=== PATIENT | male | born 1985 | race Caucasian/White ===

== ENCOUNTER 2017-03-10 01:36 | Emergency (ER) | payer SELFPAY ==
[2017-03-10] MEDS ORDERED: Sodium Chloride 0.9% 1,000 ML IV ONE (03:06)
[2017-03-10] MEDS ORDERED: Sodium Chloride 0.9% 1,000 ML ONE (03:12)
[2017-03-10 03:19] LABS: BASO % 0.7 % (0.0-2.0); EOS % 1.2 % (0.0-4.0); HEMATOCRIT 43.1 % (35.0-51.0); LYMPH # 0.8 K/uL (1.0-4.3); LYMPH % 20.7 % (20.0-40.0); MEAN CELL VOLUME 85.4 fL (80.0-94.0); MEAN CORPUSCULAR HEMOGLOBIN 28.9 pg (27.0-31.0); MEAN CORPUSCULAR HGB CONC 33.9 g/dL (33.0-37.0); MEAN PLATELET VOLUME 9.7 fL (7.2-11.7); MONO # 0.9 K/uL (0.0-0.8); MONO % 23.4 % (0.0-10.0); NRBC % 0.3 % (0.0-2.0); PLATELET COUNT 119 K/uL (130-400); RED CELL DISTRIBUTION WIDTH 13.5 % (11.5-14.5); WHITE BLOOD COUNT 3.6 K/uL (4.8-10.8)
[2017-03-10 03:29] LABS: CHLORIDE 101 mmol/L (98-107)
[2017-03-10 03:30] LABS: POTASSIUM 3.6 mmol/L (3.6-5.2); SODIUM 141 mmol/L (132-148)
[2017-03-10 03:32] LABS: ALB/GLOB RATIO 1.4 (1.0-2.1); ALKALINE PHOSPHATASE 101 U/L (38-126); AST/SGOT 81 U/L (17-59); BILIRUBIN,TOTAL 0.7 mg/dL (0.2-1.3); BLOOD UREA NITROGEN 15 mg/dL (9-20); CARBON DIOXIDE 26 mmol/L (22-30); GFR AFRICAN-AMERICAN > 60; TOTAL PROTEIN 7.3 g/dL (6.3-8.3)
[2017-03-10 03:33] LABS: ALT/SGPT 70 U/L (21-72); CALCIUM 8.9 mg/dl (8.6-10.4); GLUCOSE,RANDOM 91 mg/dL (75-110)
--- NOTE | 2017-03-10 04:04 | C.PDOC ---
History Of Present Illness 31 y/o male presents to the ED for evaluation of subjective fever and diffuse, itchy rash which began 1 week ago. Patient also reports epigastric abdominal pain and mild nausea which began earlier today. Patient states his symptoms worsen with deep breathing. He denies cough, throat swelling, vomiting. Time Seen by Provider: 03/10/17 02:50 Chief Complaint (Nursing): Abdominal Pain History Per: Patient History/Exam Limitations: no limitations Onset/Duration Of Symptoms: Days Current Symptoms Are (Timing): Still Present Location Of Pain/Discomfort: Epigastric Radiation Of Pain To:: None Quality Of Discomfort: "Pain" Past Medical History Reviewed: Historical Data, Nursing Documentation, Vital Signs Vital Signs: Last Vital Signs Temp 97.6 F 03/10/17 01:43 Pulse 90 03/10/17 01:43 Resp 20 03/10/17 01:43 BP 137/87 03/10/17 01:43 Pulse Ox 100 03/10/17 05:22 - Medical History PMH: No Chronic Diseases Surgical History: No Surg Hx Family History: States: Unknown Family Hx - Social History Hx Alcohol Use: No Hx Substance Use: No Review Of Systems Except As Marked, All Systems Reviewed And Found Negative. Constitutional: Positive for: Fever ENT: Negative for: Throat Swelling Respiratory: Negative for: Cough Gastrointestinal: Positive for: Nausea (mild), Abdominal Pain (epigastric ). Negative for: Vomiting Skin: Positive for: Rash (itchy) Physical Exam - Physical Exam Appears: Non-toxic, No Acute Distress Skin: Warm, Dry, Rash (vesicular rash at different stages to face, neck and back ) Head: Atraumatic, Normacephalic Eye(s): bilateral: Normal Inspection Oral Mucosa: Moist Neck: Normal ROM, Supple Chest: Symmetrical Cardiovascular: Rhythm Regular, No Murmur Respiratory: Normal Breath Sounds, No Rales, No Rhonchi, No Wheezing Gastrointestinal/Abdominal: Soft, No Tenderness, No Guarding, No Rebound Extremity: Normal ROM, Capillary Refill (less than 2 seconds ), No Swelling Neurological/Psych: Oriented x3, Normal Speech, Normal Cognition, Normal Motor, Normal Sensation Gait: Steady ED Course And Treatment - Laboratory Results Result Diagrams: 03/10/17 03:13 03/10/17 03:13 O2 Sat by Pulse Oximetry: 100 (on RA) Pulse Ox Interpretation: Normal Progress Note: Labs ordered and reviewed. Patient received Pepcid IVP, Toradol IVP, Zofran IVP, and IV Fluids. Medical Decision Making Medical Decision Making: On re-exam, the patient reports improvement of symptoms. Lungs are CTA, heart is RRR, abdomen is soft, non-tender and tolerating PO well. Ambulatory in the ED with steady gait. Follow up with the medical doctor within 1-2 days. Return if worsened. Disposition - Disposition Referrals: Quang Vazquez MD [Staff Provider] - Disposition: HOME/ ROUTINE Disposition Time: 05:02 Condition: GOOD Additional Instructions: Follow up with the medical doctor within 1-2 days. Return if worsened. Prescriptions: Ibuprofen [Motrin] 600 mg PO TID #21 tab predniSONE [Prednisone] 20 mg PO BID #10 tab Instructions: Viral Syndrome (ED) Forms: [employer] (Kinyarwanda) Print Language: SAMI - Clinical Impression Clinical Impression: Abdominal pain, Viral syndrome - PA / [employer] OPERATOR / Resident Statement MD/DO has reviewed & agrees with the documentation as recorded. - Scribe Statement The provider has reviewed the documentation as recorded by the Scribe (Anabelle Dinero) All medical record entries made by the Scribe were at my direction and personally dictated by me. I have reviewed the chart and agree that the record accurately reflects my personal performance of the history, physical exam, medical decision making, and the department course for this patient. I have also personally directed, reviewed, and agree with the discharge instructions and disposition.
[2017-03-10 04:54] LABS: NEUTROPHIL 49 % (50-75); REACTIVE LYMPHOCYTES 4 % (0-0); TOTAL CELLS COUNTED 100
[2017-03-10 04:55] LABS: LARGE PLATELETS PRESENT
[2017-03-10 05:30] VITALS: BP 116/75; PULSE 89; RESP 18; TEMP 98.2
[2017-03-10 05:41] VITALS: O2SAT 100
== END 2017-03-10 05:30 | disposition home or self-care (01) ==
LOC: C.ER 01:36
DX: B34.9 Viral infection, unspecified (principal); R10.9 Unspecified abdominal pain
CPT/HCPCS: 80053; 83690; 85025; 96361; 96374; 96375; 99284; J1885; J2405; J7040